=== PATIENT | female | born 1935 | race Caucasian/White ===

== ENCOUNTER 2018-05-10 14:23 | Inpatient (IN) | payer MEDICAID ==
[~2018-05-10] VITALS: Ht 152.4 cm; Wt 62.6 kg
[2018-05-10] MEDS ORDERED: MORPHINE SULFATE 10 MG/ML CPJ IM ONE (14:45)
[2018-05-10 16:29] LABS: BASOPHILS % 0.6 % (0.0-2.0); EOSINOPHILS % 1.5 % (0.0-5.0); HEMATOCRIT. 34.5 % (36.0-48.0); HEMOGLOBIN. 11.2 g/dL (12.0-16.0); LYMPHOCYTES % 13.1 % (20.0-50.0); MEAN CORPUSCULAR VOLUME 95.8 fL (81.0-99.0); MEAN PLATELET VOLUME 9.6 fl (7.4-10.4); MONOCYTES % 5.2 % (2.0-8.0); NEUTROPHILS % 79.6 % (40.0-76.0); PLATELET 232 x1000/uL (130-400); RED CELL DISTRIBUTION WIDTH 13.7 % (11.6-14.6)
[2018-05-10 16:32] LABS: CHLORIDE 109 mEq/L (98-107)
[2018-05-10 16:35] LABS: PROTHROMBIN TIME 10.2 sec (9.1-11.1)
[2018-05-10] MEDS ORDERED: IPRATROPIUM/ALBUTEROL 0.5-3(2.5)MG/3ML NEB INH PRN (17:00)
[2018-05-10] MEDS ORDERED: ONDANSETRON HCL 4MG/2ML INJ IV PRN (17:00)
[2018-05-10] MEDS ORDERED: DOCUSATE SODIUM 100MG CAPSULE PO PRN (17:00)
[2018-05-10] MEDS ORDERED: MAGNESIUM/ALUMINUM HYDROXIDE/SIMETHICONE 30ML UDC PO PRN (17:00)
[2018-05-10] MEDS ORDERED: LORAZEPAM 2MG/ML CPJ IV PRN (17:00)
[2018-05-10] MEDS ORDERED: GUAIFENESIN 200MG/10ML SUGAR FREE UDC PO PRN (17:00)
[2018-05-10 20:00] VITALS: BP 161/63
[2018-05-10 20:45] VITALS: BP 161/63
[2018-05-10] MEDS: MORPHINE SULFATE 4 MG/ML CPJ (NOT FOR IM USE) IV PRN (20:46)
[2018-05-10] MEDS: SODIUM CHLORIDE 0.45% 1,000 ML IV SCH (20:52)
[2018-05-10] MEDS: ENOXAPARIN 40MG/0.4ML SYR SUBCUT SCH (20:53)
[2018-05-10] MEDS ORDERED: NA PHOS,M-B/NA PHOS,DI-BA ENEMA 118ML PR PRN (21:00)
[2018-05-11] VITALS (12 sets, daily range): BP systolic 122–190; BP diastolic 53–87
[2018-05-11] MEDS: ACETAMINOPHEN 325MG TABLET PO PRN (00:14)
[2018-05-11] MEDS ORDERED: METF-815 PO (03:16)
[2018-05-11] MEDS ORDERED: ENAL1TAB9 PO (03:20)
[2018-05-11] MEDS ORDERED: SIMV10TA6 PO (03:20)
[2018-05-11] MEDS ORDERED: ALEN70TA46 PO (03:20)
[2018-05-11] MEDS ORDERED: GLIP5TAB12 PO (03:20)
[2018-05-11] MEDS ORDERED: OMEG-95 PO (03:20)
[2018-05-11] MEDS ORDERED: ASPI-1159 PO (03:20)
[2018-05-11] MEDS ORDERED: BACITRACIN ZINC 15GM TUBE TOP ONE (06:40)
[2018-05-11] MEDS ORDERED: NORMAL SALINE 0.9% 10 ML SYR ONE (06:40)
[2018-05-11] MEDS ORDERED: VANCOMYCIN HCL 500 MG/VIAL ONE (06:40)
[2018-05-11] MEDS ORDERED: BACITRACIN 50,000 UNITS/VIAL ONE (06:41)
[2018-05-11 06:55] LABS: BASOPHILS % 0.7 % (0.0-2.0); EOSINOPHILS % 0.4 % (0.0-5.0); HEMATOCRIT. 34.4 % (36.0-48.0); HEMOGLOBIN. 11.4 g/dL (12.0-16.0); LYMPHOCYTES % 20.9 % (20.0-50.0); MEAN CORPUSCULAR HEMOGLOBIN 31.8 pg (28.0-32.0); MEAN CORPUSCULAR VOLUME 96.3 fL (81.0-99.0); MEAN PLATELET VOLUME 10.1 fl (7.4-10.4); MONOCYTES % 7.6 % (2.0-8.0); NEUTROPHILS % 70.4 % (40.0-76.0); PLATELET 228 x1000/uL (130-400); RED BLOOD CELL COUNT 3.57 mill/uL (4.2-5.4); RED CELL DISTRIBUTION WIDTH 13.5 % (11.6-14.6)
[2018-05-11] MEDS ORDERED: PROPOFOL 200MG/20ML VIAL IV ONE (07:05)
[2018-05-11] MEDS ORDERED: FENTANYL CITRATE/PF 50MCG/ML 2ML VIAL ONE (07:05)
[2018-05-11 07:06] LABS: CHLORIDE 108 mEq/L (98-107)
[2018-05-11] MEDS ORDERED: MIDAZOLAM HCL 2 MG/2 ML VIAL ONE (07:06)
[2018-05-11] MEDS ORDERED: LIDOCAINE HCL/PF 1% 10 MG/ML 5ML VIAL ONE (07:07)
[2018-05-11 07:19] LABS: LDL CHOLESTEROL 88 mg/dL (5-100)
[2018-05-11 07:21] LABS: HDL CHOLESTEROL 44 mg/dL (40-59)
[2018-05-11] MEDS ORDERED: CEFAZOLIN SODIUM 1000MG/VIAL ONE (07:34)
[2018-05-11] MEDS ORDERED: LABETALOL HCL 5MG/ML VIAL 20ML IV ONE (07:34)
[2018-05-11] MEDS ORDERED: ONDANSETRON HCL 4MG/2ML INJ IV PRN (07:45)
[2018-05-11] MEDS ORDERED: MORPHINE SULFATE 4 MG/ML CPJ (NOT FOR IM USE) IV PRN (07:45)
[2018-05-11] MEDS ORDERED: FENTANYL CITRATE/PF 50MCG/ML 2ML VIAL IV PRN (07:45)
[2018-05-11] MEDS ORDERED: MEPERIDINE HCL/PF 25MG/ML CPJ IV PRN (07:45)
[2018-05-11 08:20] LABS: CLARITY URINE CLEAR (CLEAR); COLOR URINE YELLOW (YELLOW); KETONES URINE NEGATIVE (NEGATIVE); LEUKOCYTE ESTERASE URINE NEGATIVE (NEGATIVE); NITRITE URINE NEGATIVE (NEGATIVE); OCCULT BLOOD URINE TRACE (NEGATIVE); PROTEIN URINE NEGATIVE (NEGATIVE); SPECIFIC GRAVITY URINE 1.006 (1.005-1.030); UROBILINOGEN URINE 0.2 E.U./dL (0.2-1.0)
[2018-05-11] MEDS: ASPIRIN 81MG EC TABLET PO SCH (10:22)
[2018-05-11] MEDS: CLONIDINE 0.1MG TABLET PO PRN (10:23)
[2018-05-11] MEDS ORDERED: HYDRALAZINE 20MG/ML VIAL IV PRN (10:45)
[2018-05-11] MEDS ORDERED: HYDRALAZINE 10 MG in SODIUM CHLORIDE 0.9% 49.5 ML IV PRN (11:00)
[2018-05-11] MEDS: MORPHINE SULFATE 4 MG/ML CPJ (NOT FOR IM USE) IV PRN ×2 (12:37→21:30)
[2018-05-11] MEDS: CEFAZOLIN 1000MG PREMIX 50 ML IV SCH (15:28)
[2018-05-11] MEDS: ENOXAPARIN 40MG/0.4ML SYR SUBCUT SCH (21:39)
[2018-05-12] VITALS: BP 138/57
[2018-05-12 04:00] VITALS: BP 139/64
[2018-05-12] MEDS: CEFAZOLIN 1000MG PREMIX 50 ML IV SCH (04:07)
[2018-05-12 08:00] VITALS: BP 144/54
[2018-05-12] MEDS: ASPIRIN 81MG EC TABLET PO SCH (08:38)
[2018-05-12] MEDS: MORPHINE SULFATE 4 MG/ML CPJ (NOT FOR IM USE) IV PRN (10:48)
[2018-05-12 12:00] VITALS: BP 144/58
[2018-05-12 16:00] VITALS: BP 168/73
[2018-05-12] MEDS: ACETAMINOPHEN 325MG TABLET PO PRN (18:07)
[2018-05-12] MEDS: SODIUM CHLORIDE 0.45% 1,000 ML IV SCH (19:40)
[2018-05-12 20:00] VITALS: BP 129/57
[2018-05-12] MEDS: ENOXAPARIN 40MG/0.4ML SYR SUBCUT SCH (23:28)
[2018-05-13] VITALS: BP 161/64
[2018-05-13] MEDS: ACETAMINOPHEN 325MG TABLET PO PRN (01:01)
[2018-05-13 04:00] VITALS: BP 131/74
[2018-05-13] MEDS: SODIUM CHLORIDE 0.45% 1,000 ML IV SCH ×2 (04:41→19:40)
[2018-05-13 06:26] LABS: HEMATOCRIT 23.6 % (36.0-48.0); HEMOGLOBIN 8.1 g/dL (12.0-16.0); MEAN CORPUSCULAR HEMOGLOBIN 32.3 pg (28.0-32.0); MEAN CORPUSCULAR VOLUME 93.9 fL (81.0-99.0); PLATELET 183 x1000/uL (130-400); RED BLOOD CELL COUNT 2.52 mill/uL (4.2-5.4); RED CELL DISTRIBUTION WIDTH 13.8 % (11.6-14.6)
[2018-05-13 06:47] LABS: CHLORIDE 103 mEq/L (98-107)
[2018-05-13 08:00] VITALS: BP 155/74
[2018-05-13] MEDS: ASPIRIN 81MG EC TABLET PO SCH (08:33)
[2018-05-13 12:00] VITALS: BP 164/68
[2018-05-13] MEDS ORDERED: DEXTROSE 50% WATER 50ML SYRINGE IV PRN (12:15)
[2018-05-13] MEDS: BLOOD SUGAR DIAGNOSTIC STRIP TEST SCH ×3 (12:44→22:15)
[2018-05-13] MEDS: INSULIN LISPRO 100 UNITS/ML SUBCUT SCH ×3 (12:44→23:06)
[2018-05-13] MEDS: PIPERACILLIN/TAZ 3.375G PREMIX 50 ML IV SCH ×2 (15:53→23:02)
[2018-05-13 16:00] VITALS: BP 149/60
[2018-05-13 20:00] VITALS: BP 152/69
[2018-05-13] MEDS: ENOXAPARIN 40MG/0.4ML SYR SUBCUT SCH (23:09)
[2018-05-14] VITALS: BP 143/61
[2018-05-14] MEDS: ACETAMINOPHEN 325MG TABLET PO PRN (00:27)
[2018-05-14 04:00] VITALS: BP 166/81
[2018-05-14 06:51] LABS: HEMATOCRIT 22.9 % (36.0-48.0); HEMOGLOBIN 7.8 g/dL (12.0-16.0); MEAN CORPUSCULAR HEMOGLOBIN 32.5 pg (28.0-32.0); PLATELET 212 x1000/uL (130-400); RED BLOOD CELL COUNT 2.41 mill/uL (4.2-5.4); RED CELL DISTRIBUTION WIDTH 13.3 % (11.6-14.6)
[2018-05-14] MEDS: PIPERACILLIN/TAZ 3.375G PREMIX 50 ML IV SCH ×3 (07:30→21:59)
[2018-05-14] MEDS: BLOOD SUGAR DIAGNOSTIC STRIP TEST SCH ×4 (07:33→22:00)
[2018-05-14] MEDS: INSULIN LISPRO 100 UNITS/ML SUBCUT SCH ×5 (07:33→23:51)
[2018-05-14 08:00] VITALS: BP 161/62
[2018-05-14] MEDS: ASPIRIN 81MG EC TABLET PO SCH (08:33)
[2018-05-14] MEDS ORDERED: INSULIN LISPRO 100 UNITS/ML SUBCUT NR (11:50)
[2018-05-14 12:00] VITALS: BP 140/59
[2018-05-14 16:00] VITALS: BP 136/58
[2018-05-14 16:30] LABS: HEMATOCRIT 23.1 % (36.0-48.0); HEMOGLOBIN 7.8 g/dL (12.0-16.0); MEAN CORPUSCULAR HEMOGLOBIN 32.2 pg (28.0-32.0); MEAN CORPUSCULAR VOLUME 95.5 fL (81.0-99.0); PLATELET 235 x1000/uL (130-400); RED BLOOD CELL COUNT 2.42 mill/uL (4.2-5.4); RED CELL DISTRIBUTION WIDTH 13.7 % (11.6-14.6)
[2018-05-14] MEDS: SODIUM CHLORIDE 0.45% 1,000 ML IV SCH (19:40)
[2018-05-14 20:00] VITALS: BP 132/57
[2018-05-14] MEDS: ENOXAPARIN 40MG/0.4ML SYR SUBCUT SCH (21:59)
[2018-05-15] VITALS: BP 119/55
[2018-05-15 04:00] VITALS: BP 142/72
[2018-05-15] MEDS: PIPERACILLIN/TAZ 3.375G PREMIX 50 ML IV SCH ×3 (07:00→21:03)
[2018-05-15] MEDS: BLOOD SUGAR DIAGNOSTIC STRIP TEST SCH ×4 (07:01→21:03)
[2018-05-15 07:46] LABS: HEMATOCRIT 22.9 % (36.0-48.0); HEMOGLOBIN 7.8 g/dL (12.0-16.0); MEAN CORPUSCULAR HEMOGLOBIN 32.4 pg (28.0-32.0); MEAN CORPUSCULAR VOLUME 94.7 fL (81.0-99.0); PLATELET 244 x1000/uL (130-400); RED BLOOD CELL COUNT 2.42 mill/uL (4.2-5.4); RED CELL DISTRIBUTION WIDTH 13.6 % (11.6-14.6)
[2018-05-15] MEDS: ASPIRIN 81MG EC TABLET PO SCH (08:24)
[2018-05-15] MEDS: INSULIN LISPRO 100 UNITS/ML SUBCUT SCH ×4 (08:26→23:02)
[2018-05-15 12:00] VITALS: BP 159/76
[2018-05-15 16:00] VITALS: BP_SYST 154; BP_SYST 157; BP_DIAS 71; BP_DIAS 91
[2018-05-15] MEDS: SODIUM CHLORIDE 0.45% 1,000 ML IV SCH (19:40)
[2018-05-15 20:00] VITALS: BP 119/60
[2018-05-15] MEDS: ENOXAPARIN 40MG/0.4ML SYR SUBCUT SCH (21:02)
[2018-05-16] VITALS: BP 116/58
[2018-05-16 04:00] VITALS: BP 130/70
[2018-05-16] MEDS: ACETAMINOPHEN 325MG TABLET PO PRN (05:53)
[2018-05-16] MEDS: PIPERACILLIN/TAZ 3.375G PREMIX 50 ML IV SCH ×3 (06:32→21:00)
[2018-05-16] MEDS: BLOOD SUGAR DIAGNOSTIC STRIP TEST SCH ×4 (07:40→20:56)
[2018-05-16 08:00] VITALS: BP 167/69
[2018-05-16] MEDS: ASPIRIN 81MG EC TABLET PO SCH (09:51)
[2018-05-16] MEDS: INSULIN LISPRO 100 UNITS/ML SUBCUT SCH ×4 (09:53→20:56)
[2018-05-16 12:00] VITALS: BP 156/58
[2018-05-16 16:00] VITALS: BP 150/58
[2018-05-16] MEDS: SODIUM CHLORIDE 0.45% 1,000 ML IV SCH (19:40)
[2018-05-16] MEDS: ENOXAPARIN 40MG/0.4ML SYR SUBCUT SCH (19:43)
[2018-05-16 20:00] VITALS: BP 140/68
[2018-05-17] VITALS (7 sets, daily range): BP systolic 98–167; BP diastolic 48–78
[2018-05-17] MEDS: PIPERACILLIN/TAZ 3.375G PREMIX 50 ML IV SCH ×3 (05:05→21:01)
[2018-05-17] MEDS: CLONIDINE 0.1MG TABLET PO PRN (05:05)
[2018-05-17] MEDS: BLOOD SUGAR DIAGNOSTIC STRIP TEST SCH ×4 (06:36→20:51)
[2018-05-17] MEDS: INSULIN LISPRO 100 UNITS/ML SUBCUT SCH ×4 (08:14→20:59)
[2018-05-17] MEDS: ASPIRIN 81MG EC TABLET PO SCH (08:15)
[2018-05-17] MEDS ORDERED: HYDROCODONE/ACETAMINOPHEN 5/325MG TABLET PO PRN (10:00)
[2018-05-17] MEDS: ENOXAPARIN 40MG/0.4ML SYR SUBCUT SCH (20:51)
[2018-05-18] VITALS: BP 138/72
[2018-05-18 04:00] VITALS: BP 118/64
[2018-05-18] MEDS: PIPERACILLIN/TAZ 3.375G PREMIX 50 ML IV SCH ×3 (05:26→21:02)
[2018-05-18] MEDS: BLOOD SUGAR DIAGNOSTIC STRIP TEST SCH ×4 (06:27→21:02)
[2018-05-18 08:00] VITALS: BP 145/68
[2018-05-18] MEDS: ASPIRIN 81MG EC TABLET PO SCH (08:20)
[2018-05-18] MEDS: INSULIN LISPRO 100 UNITS/ML SUBCUT SCH ×4 (08:27→20:49)
[2018-05-18 12:00] VITALS: BP 178/63
[2018-05-18] MEDS: CLONIDINE 0.1MG TABLET PO PRN (13:46)
[2018-05-18] MEDS: SODIUM CHLORIDE 0.45% 1,000 ML IV SCH (13:47)
[2018-05-18 16:00] VITALS: BP 132/68
[2018-05-18] MEDS: ENOXAPARIN 40MG/0.4ML SYR SUBCUT SCH (19:28)
[2018-05-18 20:00] VITALS: BP 112/57
== END 2018-05-18 21:29 | DRG 308 ==
LOC: ER 14:30 → 6EST 16:37 → EDBEDREQ 16:41 → ENRESERV 18:01
PROVIDERS: ADMIT Internal Medicine; ATTEND Internal Medicine
PROC: 0QS736Z Reposition Left Upper Femur with Intramedullary Internal Fixation Device, Percutaneous Approach (ICD-10-PCS; principal; 2018-05-11 07:00)
DX: S72.142A Displaced intertrochanteric fracture of left femur, initial encounter for closed fracture (principal); D64.9 Anemia, unspecified; E11.9 Type 2 diabetes mellitus without complications; E86.0 Dehydration; D72.829 Elevated white blood cell count, unspecified; F03.90 Unspecified dementia, unspecified severity, without behavioral disturbance, psychotic disturbance, mood disturbance, and anxiety; I10 Essential (primary) hypertension; I25.10 Atherosclerotic heart disease of native coronary artery without angina pectoris; W01.0XXA Fall on same level from slipping, tripping and stumbling without subsequent striking against object, initial encounter; Y93.89 Activity, other specified; Y92.098 Other place in other non-institutional residence as the place of occurrence of the external cause; Y99.8 Other external cause status; Z79.84 Long term (current) use of oral hypoglycemic drugs
CPT/HCPCS: 36415; 71045; 73502; 73503; 80048; 80053; 80061; 81003; 82962; 85025; 85027; 85610; 87040; 93005; 93970; 96372; 97163; 97530; 99285; A4216; A6261; C1713; C1769; C1893; J0690; J1650; J1815; J2250; J2270; J2543; J2704; J3010; J3370; J3490; J7030; J7120; A4315